=== PATIENT | male | born 1955 | race Caucasian/White ===

== ENCOUNTER 2016-05-10 12:15 | Emergency (ER) | payer BC ==
[2016-05-10 12:50] VITALS: BP 125/64
--- NOTE | 2016-05-31 20:10 | UC ---
Renata Díaz Michael, scribed for Rebeca Bey DO on 05/10/16 at 1320 . Throat Pain/Nasal Jesse HPI - HPI Summary HPI Summary: 61 y/o male comes to [facility] presenting with a sore throat for the past 3 days. The pt reports that he has dysphagia, but he is able to eat and drink normally. He also c/o a fever, chills, cough, sinus pressure, and ear ache. The pt's highest temperature was 100, and the cough walks him up at night without coughing spasms. He notes that his symptoms have worsened over the last 3 days. The pt denies SOB, JOE, and n/v. The pt denies a significant PMHx and FHx. - History of Current Complaint Chief Complaint: UCRespiratory Stated Complaint: SORE THROAT Time Seen by Provider: 05/10/16 13:02 Hx Obtained From: Patient, Medical Records Onset/Duration: Gradual Onset, Lasting Days, Still Present Pain Intensity: 3 Cough: Nonproductive Associated Signs & Symptoms: Positive: Negative - SOB. JOE. n/v., Dysphagia, Sinus Discomfort, Nasal Discharge, Fever, Other - chills. sore throat. ear ache. sinus pressure.. Negative: Drooling, Wheezing, Vomiting, Rash - Allergies/Home Medications Allergies/Adverse Reactions: Allergies Allergy/AdvReac Type Severity Reaction Status Date / Time No Known Allergies Allergy Verified 01/11/15 11:47 Home Medications: Home Medications Ibuprofen TAB* [Advil TAB*] 05/10/16 [History] PMH/Surg Hx/FS Hx/Imm Hx Previously Healthy: Yes Endocrine History Of: Denies: Diabetes, Thyroid Disease Cardiovascular History Of: Denies: Cardiac Disorders, Hypertension, Pacemaker/ICD Respiratory History Of: Denies: COPD, Asthma GI/ History Of: Denies: Ulcer, Renal Disease - Surgical History Surgical History: None - Family History Known Family History: Negative: Cardiac Disease, Hypertension, Diabetes, Blood Disorder Family History: pt denies significant FHx - Social History Occupation: Employed Full-time Lives: With Family Alcohol Use: Occasionally Substance Use Type: None Smoking Status (MU): Never Smoked Tobacco Review of Systems Constitutional: Fever, Chills Skin: Negative Eyes: Negative ENT: Sore Throat, Ear Ache, Nasal Discharge, Other - sinus pressure Respiratory: Cough Cardiovascular: Negative Gastrointestinal: Negative - n/v Genitourinary: Negative Motor: Negative Neurovascular: Negative Musculoskeletal: Negative Neurological: Negative - JOE Psychological: Negative All Other Systems Reviewed And Are Negative: Yes Physical Exam Triage Information Reviewed: Yes Appearance: Well-Appearing, No Pain Distress, Well-Nourished Vital Signs: Initial Vital Signs Temp 97.7 F 05/10/16 12:47 Pulse 90 05/10/16 12:47 Resp 12 05/10/16 12:47 BP 125/64 05/10/16 12:47 Pulse Ox 99 05/10/16 12:47 Vital Signs Reviewed: Yes Eyes: Positive: Conjunctiva Clear. Negative: Discharge ENT: Positive: Hearing grossly normal, Pharyngeal erythema, TMs normal, Tonsillar swelling, Other: - sinus tenderness. Negative: Muffled/hoarse voice Neck: Positive: Supple, Nontender Respiratory: Positive: Lungs clear, Normal breath sounds, No respiratory distress, No accessory muscle use Cardiovascular: Positive: RRR, No Murmur Abdomen Description: Positive: Nontender, Soft. Negative: Distended, Guarding Bowel Sounds: Positive: Present Musculoskeletal Exam: Normal Neurological: Positive: Alert, Muscle Tone Normal Psychological Exam: Normal Psychological: Positive: Age Appropriate Behavior Skin Exam: Normal - warm. dry. nml color. Throat Pain/Nasal Course/Dx - Differential Dx/Diagnosis Differential Diagnosis/HQI/PQRI: Pharyngitis, Sinusitis, Tonsillitis, URI Provider Diagnoses: sinusitis, uri Discharge - Discharge Plan Condition: Stable Disposition: HOME Prescriptions: guaiFENesin ER TAB [Mucinex*] 600 mg PO BID PRN #1 box PRN Reason: Cough guaiFENesin/CODIEN 100MG-10MG* [Robitussin AC 100Mg-10Mg*] 5 - 10 ml PO BEDTIME PRN #100 udc MDD 10ml PRN Reason: Cough Patient Education Materials: Sinusitis (ED), Upper Respiratory Infection (ED) Referrals: Roby Hawkins MD [Primary Care Provider] - If Needed Additional Instructions: TRY USING THE NETTI POT IN THE MORNINGS DISCUSSED. YOU MUST ALWAYS USE CLEAN WATER. REMEMBER, POSTURE IS AN IMPORTANT FACTOR IN SINUS DRAINAGE. MOVE YOUR NECK, BREATHE. COUGH-SUPPRESSANT & EXPECTORANT MEDICATION: You are to use a cough medication as needed for relief of symptoms. This medicine is a combination of an expectorant (to make the mucous thinner and more easily "coughed up") and a cough suppressant (to reduce the frequency of coughing). The cough-suppressant medicine is related to narcotics. You may experience mild nausea and sleepiness. Some patients who are very sensitive to narcotics may have stomach pain from this medicine. Taking the medicine with food reduces these side effects. Do not drive or work with machinery until you know how this medicine affects you. The expectorant should have no side effects. Iodine-containing expectorants (such as organidin) should not be taken by persons with active thyroid disease unless approved by your doctor. Call the doctor if you develop shortness of breath, hives, rash, itching, lightheadedness, or severe nausea and vomiting. EXPECTORANT MEDICATION: An expectorant medicine has been prescribed. This type of drug makes mucous thinner, helping the sinuses, nose, and bronchial tubes to remain free of pus and mucous. Expectorants make a cough less severe and more comfortable, and help infected sinuses drain. In general, antihistamines defeat the purpose of the expectorant by making mucous thicker. They should be avoided unless specifically recommended by your physician. The documentation as recorded by the Renata marcelo Michael accurately reflects the service I personally performed and the decisions made by , Rebeca Bey DO.
== END 2016-05-10 13:57 | disposition home or self-care (01) ==
LOC: UCEAST 12:15
DX: J32.9 Chronic sinusitis, unspecified (principal); J06.9 Acute upper respiratory infection, unspecified
CPT/HCPCS: 87651; 99212; G0463

== ENCOUNTER 2019-04-16 11:11 | Emergency (ER) | payer BC ==
--- NOTE | 2019-04-16 13:59 | UC ---
Upper Extremity HPI - HPI Summary HPI Summary: 64 year old male presents with right shoulder pain after fall on 04/10/2019 while skiing, patient fell "somersaulted", fell directed onto shoulder. + neck pain , + posterior shoulder pain. + tingling to right tip of thumb, otherwise feeling well. Pain radiating down into forearm. Difficulty sleeping due to pain. able to move arm, shoulder around well. - History of Current Complaint Chief Complaint: UCUpperExtremity Stated Complaint: ARM INJURY Time Seen by Provider: 04/16/19 13:03 Hx Obtained From: Patient ?: No Onset/Duration: Sudden Onset, Lasting Days - 04/10/2019, Still Present, Worse Since - daily worsening Severity Initially: Moderate Severity Currently: Moderate Pain Intensity: 4 Pain Scale Used: 0-10 Numeric Location Of Pain: Is Discrete @ - right shoulder Character: Sharp, Aching Aggravating Factor(s): Movement, Lifting Associated Signs And Symptoms: Positive: Negative - Allergies/Home Medications Allergies/Adverse Reactions: Allergies Allergy/AdvReac Type Severity Reaction Status Date / Time No Known Allergies Allergy Verified 04/16/19 11:55 Home Medications: Home Medications Ibuprofen TAB* [Advil TAB*] 400 mg PO Q4H PRN 04/16/19 [History Confirmed ] PMH/Surg Hx/FS Hx/Imm Hx Previously Healthy: Yes - Surgical History Surgical History: None - Family History Known Family History: Positive: Non-Contributory Negative: Cardiac Disease, Hypertension, Diabetes, Blood Disorder Family History: pt denies significant FHx - Social History Occupation: Employed Full-time Alcohol Use: Weekly Substance Use Type: None Smoking Status (MU): Never Smoked Tobacco Review of Systems All Other Systems Reviewed And Are Negative: Yes Constitutional: Positive: Negative. Negative: Fatigue Skin: Positive: Negative. Negative: Bruising Neurovascular: Positive: Decreased Sensation - right tip of thumb Musculoskeletal: Positive: Arthralgia, Myalgia. Negative: Decreased ROM, Edema Is Patient Immunocompromised?: No Physical Exam Triage Information Reviewed: Yes Appearance: Well-Appearing, No Pain Distress, Well-Nourished Vital Signs: Initial Vital Signs Temp 98.1 F 04/16/19 11:52 Pulse 68 04/16/19 11:52 Resp 15 04/16/19 11:52 BP 140/72 04/16/19 11:52 Pulse Ox 100 04/16/19 11:52 Vital Signs Reviewed: Yes Eyes: Positive: Conjunctiva Clear ENT: Positive: Hearing grossly normal Neck: Positive: Supple, No Lymphadenopathy, Other: - TTP over right paraspinal extending into trap. Negative: Nuchal Rigidity Musculoskeletal: Positive: ROM Intact - Right shoudler - FF= 170, abdu 120 AROM without difficulty ., Other: - b/l UE with dye worker, finger, wrist, elbow strength 5 /5 = B/L, full ROM of thumb, strong OK sign, no weakness with finger sterngth testing. RIght shoulder mild + RC testing with supraspinatus testing, mild + neer. neg biceps. with arms at FF to 90, significant scapula winging noted on right shoulder. cerivcal- no tenderness of cervical spine, + paraspinal tenderness. - spurling, but decreased cervical ROM with ear to shoulder due to pain on right side, full ROM other motions. Neurological: Positive: Alert - SITLT distal to right shoulder. Psychological Exam: Normal Upper Extremity Course/Dx - Course Course Of Treatment: Nerve injury- - Follow up with Dr. Rowell tomorrpamella for further evaluation and treatment - Percocet as needed for severe pain. 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 - Differential Dx/Diagnosis Provider Diagnosis: Nerve injury Discharge ED - Sign-Out/Discharge Documenting (check all that apply): Patient Departure All imaging exams completed and their final reports reviewed: Yes - Discharge Plan Condition: Good Disposition: HOME Prescriptions: Oxycodone HCl/Acetaminophen [Percocet 5-325 mg Tablet] 1 each PO Q6H PRN #20 tablet MDD 4 PRN Reason: Pain - Severe Patient Education Materials: Cervical Radiculopathy (ED) Referrals: Roby Hawkins MD [Primary Care Provider] - Additional Instructions: - Follow up with Dr. Rowell tomorrpamella for further evaluation and treatment - Percocet as needed for severe pain. 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 Dysfunction of the long thoracic nerve leads to paralysis of the serratus anterior muscle, which results in winging of the scapula. To demonstrate winging, the patient presses the outstretched arms against a wall; the involved scapula projects from the thorax as viewed from behind. Importantly, winging of the scapula is not specific for a long thoracic neuropathy, as it can also be seen in spinal accessory neuropathies (with trapezius weakness), dorsal scapular neuropathies ( causing rhomboid weakness), cervical radiculopathy, and primary muscle diseases. The main causes of injury to the long thoracic nerve are the following: -Neuralgic amyotrophy -Trauma or compression -Stretch or traction from repetitive activities In its classic form, neuralgic amyotrophy is characterized by the onset of severe pain followed by patchy weakness in the distribution of a trunk or cord of the brachial plexus or in the distribution of multiple nerves, usually accompanied by winging of the scapula. In some cases of neuralgic amyotrophy, the long thoracic nerve is involved in isolation. Trauma to the long thoracic nerve can occur from a direct blow to the shoulder or lateral chest wall (eg, playing football), from invasive procedures (eg, first rib resection, mastectomy with axillary node dissection, scalenectomies, chest tube insertion, infraclavicular plexus anesthesia, and cardiothoracic surgery) . Some cases that present postoperatively are likely caused by neurovascular compression or traction from upper arm positioning during anesthesia. Nerve compression is the presumed mechanism of injury associated with carrying heavy objects such as backpacks across the shoulder. Stretch or traction to the nerve may occur from repetitive motion related to sports or manual labor, particularly when the arm is in an overhead, outstretched position , and rarely from chiropractic manipulation Management and prognosis vary according to the mechanism of nerve injury. Recovery from neuralgic amyotrophy occurs slowly over one to three years . Most cases of long thoracic nerve injury caused by carrying or by repetitive activity are incomplete and resolve spontaneously within 6 to 24 months. The patient should avoid the precipitating movement and avoid carrying heavy objects across the shoulder. Physical therapy and exercise are important to maintain range of motion and strengthen trapezius and rhomboid muscles. Long thoracic nerve injury due to trauma is generally severe and recovery is often limited or does not occur. For those who do not experience functional recovery, surgical procedures may be an option . These include various combinations of muscle transfers and fascial grafts (eg, transfer of the sternal head of the pectoralis major muscle). There are also a few case reports of successful treatment with nerve transfer using the thoracodorsal nerve or medial pectoral nerve. However, functional limitation due to isolated serratus anterior weakness most often is relatively mild and does not require surgical intervention. - Billing Disposition and Condition Condition: GOOD Disposition: Home
[2019-04-16 14:50] VITALS: BP 122/74
== END 2019-04-16 14:53 | disposition home or self-care (01) ==
LOC: UCEAST 11:11
DX: S44.91XA Injury of unspecified nerve at shoulder and upper arm level, right arm, initial encounter (principal); W19.XXXA Unspecified fall, initial encounter; Y93.23 Activity, snow (alpine) (downhill) skiing, snowboarding, sledding, tobogganing and snow tubing; Y92.9 Unspecified place or not applicable
CPT/HCPCS: 72050; 72070; 99213; G0463